=== PATIENT | female | born 1945 | race Caucasian/White ===

== ENCOUNTER 2021-04-30 16:34 | Outpatient (CLI) | payer SELFPAY ==
[2021-04-30 17:23] LABS: INR 1.93 (0.8-1.2)
== END 2021-04-30 16:35 | disposition home or self-care (01) ==
LOC: LAB 16:37
PROVIDERS: Visit Provider Family Medicine
DX: Z79.01 Long term (current) use of anticoagulants (principal)
CPT/HCPCS: 85610